=== PATIENT | female | born 1960 | race Caucasian/White ===

== ENCOUNTER 2023-05-18 14:07 | Emergency (ER) | payer SELFPAY ==
[2023-05-18 14:15] VITALS: BP 149/71
--- NOTE | 2023-05-18 15:21 | ED.GENMED ---
History of Present Illness
<Mark Benoit PA-C - Last Filed: 05/18/23 16:14>
General
Chief Complaint: Musculo-Skeletal Complaint
Source: patient
Time Seen by Provider: 05/18/23 15:23
History of Present Illness
History of Present Illness:
63-year-old female presenting to the emergency department for evaluation of chronic left foot and ankle pain that been ongoing since December, has had previous reconstruction of the foot and ankle secondary to a traumatic injury prior to this but
notes that in December she had an accidental fall and has been having pain since. Patient has been wearing an orthopedic boot for comfort but notes due to increased pain decided to come to the ER today. She attempted to follow-up with her
orthopedic physician but was unable to get an appointment until June 16. She denies any new traumas since December. She has been wearing an orthopedic boot but states due to continued pain she did not know what else to do. Patient denies any
fevers or infectious symptoms or any other concerns.
<Brian Hidalgo DO - Last Filed: >
Travel History
Have you had any contact with someone who has COVID-19?: No
Do you have any symptoms of coronavirus? Fever > 100 degrees, chills, cough, shortness of breath, sore throat, loss of taste or smell, muscle aches, or headache?: No
Past History
<Mark Benoit PA-C - Last Filed: 05/18/23 16:14>
Past History
ED Past Medical History: Psychiatric
ED Past Surgical History: Orthopedic
Social History
Alcohol: Chronic alcoholic
<Brian Hidalgo DO - Last Filed: >
Past History
ED Past Medical History: CAD, HTN and Other
ED Past Surgical History: Cholecystectomy
Social History
Tobacco: Smoker
Alcohol: None
Drug: Marijuana
Personal: Single
Living: with family
Employment: Employed
Family History
Family History: Negative Diabetes, Hypertension or CAD
Review of Systems
<Mark Benoit PA-C - Last Filed: 05/18/23 16:14>
Review of Systems
All Other Systems: ROS reviewed and negative except as documented in HPI and ROS
Phy Exam
<Mark Benoit PA-C - Last Filed: 05/18/23 16:14>
Physical Exam
Physical Exam:
GENERAL: Alert , in no apparent distress
EYE: conjunctiva clear
Head: Normocephalic atraumatic
NECK: Supple,
ENT: mmm.
LUNGS: no acute respiratory distress
NEUROLOGICAL: Alert and oriented
SKIN: Warm and dry, skin intact.
MUSCULOSKELETAL: Left lower extremity: No obvious deformity, erythema, edema, ecchymosis, abrasions or lacerations. There is no focal area of tenderness but patient notes pain is mainly along the lateral aspect of her foot. Easily palpable pedal
and tibial pulse. Cap refill less than 2 seconds and sensation is grossly intact to light touch. Patient allows for full active and passive range of motion of the left foot and ankle but does note discomfort while doing so.
PSYCH: Normal and appropriate interaction.
Scores
<Mark Benoit PA-C - Last Filed: 05/18/23 16:14>
Heart Failure Risk
Heart Failure Risk Score: Not Applicable
Heart Score for Chest Pain Patients
STEMI patient?: Not applicable
Withdrawal Assessment of Alcohol
Withdrawal Assessment Completed?: Not applicable
Course
<Mark Benoit PA-C - Last Filed: 05/18/23 16:14>
Orders/Labs/Results
Orders:
Orders
05/18/23 15:37
Ortho Boot Left- Treatment ONCE
Short or tall?: Tall
Vital Signs
Initial and Last Documented VS:
Initial Vital Signs
Temp Pulse Resp BP Pulse Ox
98.0 F 90 16 149/71 98
05/18/23 14:15 05/18/23 14:15 05/18/23 14:15 05/18/23 14:15 05/18/23 14:15
Last Documented Vital Signs
Temp Pulse Resp BP Pulse Ox
98.0 F 83 16 149/71 95
05/18/23 14:15 05/18/23 16:07 05/18/23 14:15 05/18/23 14:15 05/18/23 16:07
<Brian Hidalgo DO - Last Filed: >
Orders/Labs/Results
Orders:
Orders
05/18/23 15:37
Ortho Boot Left- Treatment ONCE
Short or tall?: Tall
Vital Signs
Initial and Last Documented VS:
Initial Vital Signs
Temp Pulse Resp BP Pulse Ox
98.0 F 90 16 149/71 98
05/18/23 14:15 05/18/23 14:15 05/18/23 14:15 05/18/23 14:15 05/18/23 14:15
Last Documented Vital Signs
Temp Pulse Resp BP Pulse Ox
98.0 F 83 16 149/71 95
05/18/23 14:15 05/18/23 16:07 05/18/23 14:15 05/18/23 14:15 05/18/23 16:07
<Mark Benoit PA-C - Last Filed: 05/18/23 16:14>
MDM/Problems Addressed
Differential Diagnosis Includes:
Chronic pain, ligamentous injury, tendinopathy, less concern for fracture, gout considered
MDM/Problems Addressed:
63-year-old female presenting the emergency department for evaluation of acute on chronic left foot/ankle pain. Patient has a reported follow-up scheduled with her orthopedist this coming June 16. She notes that her orthopedic physicians last day
at that practice is on the and she does not know who she will follow-up with afterwards. I provided the patient with information for orthopedics. I expressed to the patient that this is a chronic injury that needs outpatient follow-up. I
offered her x-ray imaging but she notes that she had already had an x-ray done here. Due to patient's substance abuse history I am hesitant to prescribe any narcotic pain medication. Advised patient continue with NSAIDs/Tylenol as needed for pain.
She is otherwise stable for discharge home. She notes that she has missing straps from her orthopedic boot so we will provide patient with a new orthopedic boot prior to discharge.
<Mark Benoit PA-C - Last Filed: 05/18/23 16:14>
*Pulse Oximetry
Patient hypoxic: no
*Critical Care Note
Total Time (30-74mins, 75-104mins- exclusive of procedures): Not Applicable
Data Reviewed
Review of Other/Old Records Reveals: Radiology Studies
<Brian Hidalgo DO - Last Filed: >
-
Portions of this chart may have been created with voice recognition software.� Occasional wrong word or��sound alike� substitutions may have occurred due to the inherent limitations of voice recognition software.
Discharge Plan
Departure
Patient Disposition: Home (Routine Discharge)
Date of Disposition: 05/18/23
Time of Disposition: 15:38
Patient with high blood pressure during this ER visit?: Yes
Discharge Problem:
Chronic pain in left foot
Instructions: Foot Sprain (DC)
Prescriptions:
No Action
bupropion HCl 150 MG tablet extended release 24 hr
150 mg PO DAILY
trazodone 100 MG tablet
200 mg PO HS
aspirin 81 MG tablet,delayed release (DR/EC)
81 mg PO DAILY 0RF
atorvastatin 40 MG tablet
40 mg PO DAILY
losartan 25 MG tablet
25 mg PO DAILY
gabapentin [Neurontin] 600 MG tablet
600 mg PO QID
amlodipine 2.5 MG tablet
2.5 mg PO DAILY
buprenorphine-naloxone 1 TAB tablet, sublingual
1 tab sublingual BID
pantoprazole 40 MG tablet,delayed release (DR/EC)
40 mg PO BID Qty: 60 0RF
polyethylene glycol 3350 17 GRAMS powder in packet
17 grams PO DAILY Qty: 30 0RF
Referrals:
Jerry Castro MD [Active] -
(Ortho - Call for appointment
)
Arlin Gonzales MD [Family Provider] -
Interventions
Interventions:
*Risk Screen - Suicide Last Done: 05/18/23 16:07
*General Assessment Last Done: 05/18/23 16:07
*Neglect/Abuse Screening Last Done: 05/18/23 16:07
*ED COVID-19 Vaccine History Last Done: 05/18/23 14:15
*Nursing Disposition Last Done: 05/18/23 16:07
ED-Musculoskeletal Assessment Last Done: 05/18/23 15:21
Discharge Date and Time
Discharge Date/Time: 05/18/23 16:08
== END 2023-05-18 16:08 | disposition home or self-care (01) ==
LOC: EMR 14:07
PROVIDERS: EMERGENCY PHYSICIAN Emergency Medicine; FAMILY PHYSICIAN Family Medicine
DX: G89.29 Other chronic pain (principal); M25.572 Pain in left ankle and joints of left foot; I25.10 Atherosclerotic heart disease of native coronary artery without angina pectoris; I10 Essential (primary) hypertension; F17.200 Nicotine dependence, unspecified, uncomplicated; Z90.49 Acquired absence of other specified parts of digestive tract
CPT/HCPCS: 99282